=== PATIENT | female | born 1990 | race Caucasian/White ===

== ENCOUNTER 2019-02-20 17:19 | Emergency (ER) | payer BC ==
[~2019-02-20] VITALS: Wt 65.6 kg
[2019-02-20] MEDS ORDERED: morphine 4 MG/ML VIAL IV STA (19:31)
[2019-02-20] MEDS ORDERED: SOD CHLORIDE 0.9% 1,000 ML IV STA (19:31)
[2019-02-20] MEDS ORDERED: ONDANSETRON 4 MG INJ IV STA (19:31)
[2019-02-20] MEDS ORDERED: IBUP-1542 PO (22:09)
[2019-02-20 22:48] VITALS: BP 117/80; PULSE 82; RESP 19
--- NOTE | 2019-02-20 23:01 | ERD ---
ER Documentation Chief Complaint Chief Complaint syncopal episode today. seen by ems. lac to chin. witnesses loc HPI Patient is a 28-year-old female with no medical problems who presents with syncope. 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 She fell and hit her chin on the floor. She has a headache and jaw pain. She had nausea and vomiting afterwards. Upon review of old medical records this is the patient's first visit to the emergency department. She is a small laceration under her chin. Upon review of old medical records this is the patient's first visit to the emergency department. ROS All systems reviewed and are negative except as per history of present illness. Medications Home Meds Active Scripts Ibuprofen* (Motrin*) 600 Mg Tab, 600 MG PO Q6H PRN for PAIN AND OR ELEVATED TEMP, #30 TAB Prov:ASUNCION CONTRERAS MD 02/20/19 PMhx/Soc Medical and Surgical Hx: pt denies Medical Hx, pt denies Surgical Hx Hx Alcohol Use: Yes Hx Substance Use: No Smoking Status: Never smoker FmHx Family History: No diabetes Physical Exam Vitals Vital Signs Date Temp Pulse Resp B/P (MAP) Pulse Ox O2 O2 Flow FiO2 Time Delivery Rate 02/20/19 98.6 82 19 117/80 100 Room Air 22:48 (92) 02/20/19 86 20 102/73 100 Room Air 20:30 (83) 02/20/19 98.7 84 18 111/62 98 17:31 (78) Physical Exam Const: Mild distress Head: Atraumatic Eyes: Normal Conjunctiva ENT: Pain to the left TMJ Neck: Full range of motion. No meningismus. Resp: Clear to auscultation bilaterally Cardio: Regular rate and rhythm, no murmurs Abd: Soft, non tender, non distended. Normal bowel sounds Skin: 1 cm laceration under the chin in the midline Back: No midline or flank tenderness Ext: No cyanosis, or edema Neur: Awake and alert Psych: Normal Mood and Affect Result Diagram: 02/20/19193202/20/191932 Results 24 hrs Laboratory Tests Test 02/20/19 19:33 02/20/19 19:34 02/20/19 19:44 White Blood Count 12.0 10^3/ul Red Blood Count 4.07 10^6/ul Hemoglobin 12.2 g/dl Hematocrit 37.1 % Mean Corpuscular Volume 91.2 fl Mean Corpuscular Hemoglobin 30.0 pg Mean Corpuscular 32.9 g/dl Hemoglobin Concent Red Cell Distribution Width 13.5 % Platelet Count 261 10^3/UL Mean Platelet Volume 10.3 fl Immature Granulocytes % 0.300 % Neutrophils % 86.8 % Lymphocytes % 9.2 % Monocytes % 3.4 % Eosinophils % 0.1 % Basophils % 0.2 % Nucleated Red Blood Cells % 0.0 /100WBC Immature Granulocytes # 0.040 10^3/ul Neutrophils # 10.4 10^3/ul Lymphocytes # 1.1 10^3/ul Monocytes # 0.4 10^3/ul Eosinophils # 0.0 10^3/ul Basophils # 0.0 10^3/ul Nucleated Red Blood Cells # 0.0 10^3/ul Sodium Level 138 mmol/L Potassium Level 3.6 mmol/L Chloride Level 102 mmol/L Carbon Dioxide Level 24 mmol/L Anion Gap 12 Blood Urea Nitrogen 12 mg/dl Creatinine 0.82 mg/dl Est Glomerular Filtrat Rate mL/min > 60 mL/min Glucose Level 103 mg/dl Calcium Level 9.7 mg/dl Troponin I < 0.012 ng/ml POC Beta HCG, Qualitative NEGATIVE Bedside Glucose 92 mg/dL Current Medications Medications Dose Sig/Selena Start Time Status Last (Trade) Ordered Route PRN Stop Time Admin Dose Reason Admin Sodium 1,000 ml @ Q1H STAT 02/20/19 DC 02/20/19 Chloride 1,000 mls/hr IV 19:31 19:39 02/20/19 20:30 Morphine 4 mg ONCE STAT 02/20/19 DC 02/20/19 Sulfate IV 19:31 19:47 (morphine) 02/20/19 19:33 Ondansetron 4 mg ONCE STAT 02/20/19 DC 02/20/19 HCl (Zofran IV 19:31 19:47 Inj) 02/20/19 19:33 Procedures/MDM CT brain negative per radiology. CT facial bones negative per radiology. EKG read by me: Rate/Rhythm: Regular rate and rhythm at a normal rate Intervals: Normal Impression: No evidence of ischemia or arrhythmia Laceration Repair by me: Anesthesia: none required Location: Chin Tendon/Joint/Nerves: No injury Foreign body: None detected after copious irrigation and exploration Technique: Dermabond Complexity: No subcutaneous sutures/mucosal repair/edge excision Post Closure Length: 1 cm Patient's bleeding was easily controlled in the department and there is no indication of anemia. No evidence of compartment syndrome, neurologic injury, vascular injury, open joint, tendon laceration, or foreign body. Patient is appropriate for outpatient follow up. 48 hour wound check. Scar minimization instructions given. Patient is a 28-year-old female who presents with syncope. She had a CT scan of the brain to rule out hemorrhage as she was vomiting after the incident. She had a CT scan of the facial bones done because she was having trouble and pain with moving her jaw. Laboratory studies were basically normal. EKG shows no signs of ischemia. test is negative. Departure Diagnosis: Primary Impression: Laceration Additional Impression: Syncope Syncope type: unspecified Qualified Codes: R55 - Syncope and collapse Condition: Fair Patient Instructions: Causes of Syncope, Laceration, All Referrals: Your doctor Additional Instructions: Call your primary care doctor TOMORROW for an appointment during the next 1 WEEK.Tell the engineering secretary that you were referred from this facility.See the doctor sooner or return here if your condition worsens before your appointment time. ASUNCION CONTRERAS MD Feb 20, 2019 23:01
== END 2019-02-20 22:50 | disposition home or self-care (01) ==
LOC: E/R 17:19
DX: S01.81XA Laceration without foreign body of other part of head, initial encounter (principal); R55 Syncope and collapse; W01.198A Fall on same level from slipping, tripping and stumbling with subsequent striking against other object, initial encounter; Y92.9 Unspecified place or not applicable
CPT/HCPCS: 12011; 36415; 70450; 70486; 80048; 81025; 82962; 84484; 85025; 93005; 96374; 96375; J2270; J2405; J7030; Z7502